=== PATIENT | female | born 1945 | race Caucasian/White ===

== ENCOUNTER 2016-04-15 14:06 | Emergency (ER) | payer OTHER ==
[~2016-04-15] VITALS: Ht 152.4 cm; Wt 56.7 kg
--- NOTE | 2016-04-15 14:08 | NUR ---
PT BIBA TO BED 3 AT THIS TIME
--- NOTE | 2016-04-15 14:15 | NUR ---
BIBA TO ED WITH C/O LOWER BACK PAIN RADIATING RLE X 10 DAYS; STATED, WAS SEEN AT [place] 2 DAYS AGO, RX PAIN MED BUT DOES NOT WORK FOR HER AND SHE CAN NOT RECALL NAME; HX DM, HTN , BACK PAIN; DENIES N/V/D; SKIN IS PINK/WARM/DRY; AAOX4 WITH EVEN AND STEADY GAIT; LUNGS CLEAR BL; HR EVEN AND REGULAR; PT DENIES ANY FEVER, CP, SOB, OR COUGH AT THIS TIME; PATIENT STATES PAIN OF 8/10 AT THIS TIME; VSS; PATIENT POSITIONED FOR COMFORT; HOB ELEVATED; BEDRAILS UP X2; BED DOWN. ER MD MADE AWARE OF PT STATUS.
[2016-04-15 14:17] VITALS: BP 119/54
[2016-04-15] MEDS ORDERED: MORPHINE SULFATE 4 MG/ML SYR IM ONE (15:05)
[2016-04-15] MEDS ORDERED: ONDANSETRON 4 MG ODT PO ONE (15:05)
--- NOTE | 2016-04-15 15:15 | NUR ---
AAO TAKEN TO XRAY VIA AMANDA BY ACCESS LEAD
[2016-04-15] MEDS ORDERED: predniSONE 20 MG TAB PO ONE (15:45)
--- NOTE | 2016-04-15 15:56 | NUR ---
AAO PT EATING SANDWICH, APPLE SAUCE, FEELS BETTER PAIN AT 5/10, HOOKED ON A MONITOR, VSS
[2016-04-15 16:20] VITALS: BP 121/63
--- NOTE | 2016-04-15 16:20 | NUR ---
Patient discharged with v/s stable. Written and verbal after care instructions given and explained. Patient alert, oriented and verbalized understanding of instructions. Wheel Chair Assisted with to car. All questions addressed prior to discharge. ID band removed. Patient advised to follow up with PMD. Rx of NORO, PREDNISONE given. Patient educated on indication of medication including possible reaction and side effects. Opportunity to ask questions provided and answered.
== END 2016-04-15 16:20 | disposition home or self-care (01) ==
LOC: MED 14:06
DX: M51.36 Other intervertebral disc degeneration, lumbar region (principal); I10 Essential (primary) hypertension; E11.9 Type 2 diabetes mellitus without complications; Z88.2 Allergy status to sulfonamides
CPT/HCPCS: 72100; 73502; 82948; 96372; 99284; J2270; J7512; S0119

== ENCOUNTER 2016-10-27 22:05 | Inpatient (IN) | payer BC, OTHER ==
[~2016-10-27] VITALS: Ht 160 cm; Wt 68.5 kg
[~2016-10-27 22:05] MED LIST: DULO30EC PO; IBUP-1842 PO; IMO2 PO; LEVO0.0511 PO; LISI10TA11 PO; MECL-272 PO; METF500T PO; OLAN10TA26 PO; PREG100C PO; SIMV10TA1 PO
[2016-10-27] MEDS ORDERED: NALOXONE 0.4 MG/ML VIAL IVP ONE (22:10)
[2016-10-27] MEDS ORDERED: NALOXONE PFS 2 MG/2 ML SYR IVP ONE (22:10)
[2016-10-27 22:12] VITALS: BP 130/70
--- NOTE | 2016-10-27 22:15 | NUR ---
PT PLACED IN BED 5 BY EMS.
--- NOTE | 2016-10-27 22:16 | NUR ---
71Y F BIBA C/O ALOC, LAST SEEN NORMAL BY FAMILY MIDNIGHT LAST NIGHT. PT WAS ADMITTED TO [facility] FOR UNKNOWN REASONS AT THIS TIME. PT AWAKE, AOX1 NAME. PER EMS, PT WAS UNRESPONSIVE UPON ARRIVAL, HAD PINPOINT PUPILS AND WAS GIVEN NARCAN WITH MINIMAL CHANGE. HX HTN, DM BLOOD GLUCOSE IN FIELD WAS 90
[2016-10-27] MEDS ORDERED: BACL10TA4 PO (22:22)
[2016-10-27] MEDS ORDERED: IBUP-1842 PO (22:22)
[2016-10-27] MEDS ORDERED: ACET-8386 PO (22:22)
--- NOTE | 2016-10-27 22:24 | NUR ---
PT TAKEN TO CT
--- NOTE | 2016-10-27 22:36 | NUR ---
PT RETURN FROM CT
--- NOTE | 2016-10-27 22:44 | NUR ---
Dr. Hollis evaluating patient at bedside.
[2016-10-27] MEDS ORDERED: NACL 0.9% 1,000 ML IV ONE (23:00)
[2016-10-27 23:13] LABS: BASOPHILS # (AUTO) 0.2 K/uL (0.00-0.22); BASOPHILS % (AUTO) 3.1 % (0.0-2.0); EOSINOPHILS # (AUTO) 0.1 K/uL (0-0.4); EOSINOPHILS % (AUTO) 1.4 % (0.0-4.0); HEMATOCRIT 34.3 % (36-48); HEMOGLOBIN 10.8 g/dL (12.0-16.0); LYMPHOCYTES % (AUTO) 27.7 % (20.5-51.1); MEAN CORPUSCULAR HEMOGLOBIN 27 pg (27-31); MEAN CORPUSCULAR HGB CONC 32 g/dL (33-37); MEAN CORPUSCULAR VOLUME 86 fL (80-94); MONOCYTES # (AUTO) 0.5 K/uL (0.8-1.0); MONOCYTES % (AUTO) 7.4 % (1.7-9.3); NEUTROPHILS # (AUTO) 4.5 K/uL (1.8-7.7); NEUTROPHILS % (AUTO) 60.4 % (42.2-75.2); PLATELET COUNT (AUTO) 326 K/uL (140-450); RED BLOOD CELL COUNT(AUTO) 3.99 MIL/uL (4.20-5.40); RED CELL DISTRIBUTION WIDTH 15.1 % (11.6-13.7); WHITE BLOOD COUNT (AUTO) 7.3 K/uL (4.8-10.8)
[2016-10-27 23:24] LABS: ANION GAP 11.8 (8-16); CARBON DIOXIDE 26.9 mmol/L (21-32); CHLORIDE 108 mmol/L (98-107); CREATININE 0.7 mg/dL (0.6-1.3); GLUCOSE 98 mg/dL (74-106); POTASSIUM 3.7 mmol/L (3.5-5.1); SODIUM SERUM 143 mmol/L (136-145); UREA NITROGEN, BLOOD 11 mg/dL (7-18)
[2016-10-27 23:30] LABS: APPEARANCE,URINE CLEAR (CLEAR); BILIRUBIN,URINE NEGATIVE (NEGATIVE); BLOOD, URINE NEGATIVE (NEGATIVE); COLOR,URINE YELLOW (YELLOW); LEUKOCYTE ESTERASE ,URINE NEGATIVE (NEGATIVE); NITRITE, URINE NEGATIVE (NEGATIVE); PH,URINE 6.5 (5.0-9.0); UGLUCOSE NEGATIVE (NEGATIVE)
[2016-10-27 23:30] LABS: ALBUMIN 3.6 g/dL (3.4-5.0); ASPARTATE AMINOTRANSFERASE 39 U/L (15-37); TOTAL BILIRUBIN 0.2 mg/dL (0.0-1.0)
[2016-10-27 23:31] LABS: ACETAMINOPHEN < 0.5 ug/ml (10-30); SALICYLATE < 2.8 mg/dL (2.8-20.0)
[2016-10-27 23:38] LABS: BARBITURATE, URINE NEG. ng/ml (NEG <=200); BENZODIAZEPINE, URINE NEG. ng/mL (NEG <=200); CANNABINOID, URINE NEG. ng/mL (NEG <=50); COCAINE, URINE NEG. ng/mL (NEG <=300); OPIATE, URINE NEG. ng/mL (NEG <=2000); PHENCYCLIDINE SCREEN,URINE NEG. ng/mL (NEG <=25)
[2016-10-28] MEDS: NACL 0.9% 1,000 ML IV SCH ×4 (00:04→22:42)
[2016-10-28] MEDS ORDERED: MORPHINE SULFATE 2 MG/ML SYR IVP PRN (00:05)
[2016-10-28] MEDS ORDERED: ACETAMINOPHEN 325 MG TAB PO PRN (00:05)
[2016-10-28] MEDS ORDERED: ONDANSETRON 4 MG/2 ML VIAL IM/IVP PRN (00:05)
[2016-10-28] MEDS ORDERED: HYDROcodone/APAP 7.5/325 MG 1 TAB PO PRN (00:05)
[2016-10-28] MEDS ORDERED: DOCUSATE SODIUM 100 MG GELCAP PO PRN (00:05)
--- NOTE | 2016-10-28 00:32 | NUR ---
Patient will be admitted to care of DR CHENG. Admited to TELE. Will go to room 124B. Belongings list completed. Report to HARINI SUTTON .
[2016-10-28 00:48] LABS: PROTHROMBIN TIME 10.1 secs (10.8-13.4)
[2016-10-28 00:50] LABS: CHOL/HDL RATIO 2.2 (1-4.5); FREE T4 (FREE THYROXINE) 0.88 ng/dL (0.76-1.46); MAGNESIUM 1.7 mg/dL (1.8-2.4); PHOSPHORUS 3.8 mg/dL (2.5-4.9)
--- NOTE | 2016-10-28 01:00 | NUR ---
DUE TO PT CLINICAL CONDITION OF ALOC, ASSESSMENT REPORT IS LIMITED. UNABLE TO OBTAIN MEDICAL HX FROM PT. INFORMATION TO COMPLETE PT ASSESSMENT WAS OBTAINED FROM ER HISTORY REPORT.
--- NOTE | 2016-10-28 01:05 | NUR ---
PT ARRIVED AT [facility] VIA GURNEY FROM ER. PT IS SLEEPING. BOWEL SOUNDS PRESENT ON ALL FOUR QUADRANT. BILATERAL HALF SIDE RAILS UP, BED ALARM ON. BELONGING ARE AT THE BEDSIDE. WILL CONTINUE TO MONITOR.
--- NOTE | 2016-10-28 01:20 | NUR ---
SCD'S PLACED ON PT BLE. PT TOLERATED WELL.
--- NOTE | 2016-10-28 02:20 | NUR ---
PT IS SLEEPING. NO SIGNS OF ACUTE DISTRESS, BED ON LOW POSITION, CALL LIGHT WITHIN REACH. WILL CONTINUE TO MONITOR.
[2016-10-28 04:00] VITALS: BP 141/66
--- NOTE | 2016-10-28 04:10 | NUR ---
PT IS SLEEPING. SHOWING NO SIGNS OF ACUTE DISTRESS, BED ON LOW POSITION, BILATERAL HALF SIDE RAILS UP, BED ALARM ON, WILL CONTINUE TO MONITOR.
--- NOTE | 2016-10-28 06:10 | NUR ---
PT IS SLEEPING. SHOWING NO SIGNS OF ACUTE DISTRESS, BED ON LOW POSITION, BILATERAL HALF SIDE RAILS UP, BED ALARM ON, WILL CONTINUE TO MONITOR.
[2016-10-28 06:15] LABS: BASOPHILS # (AUTO) 0.3 K/uL (0.00-0.22); BASOPHILS % (AUTO) 3.2 % (0.0-2.0); EOSINOPHILS # (AUTO) 0.1 K/uL (0-0.4); EOSINOPHILS % (AUTO) 1.4 % (0.0-4.0); HEMATOCRIT 29.8 % (36-48); HEMOGLOBIN 9.7 g/dL (12.0-16.0); LYMPHOCYTES # (AUTO) 2.3 K/uL (2.5-16.5); LYMPHOCYTES % (AUTO) 29.1 % (20.5-51.1); MEAN CORPUSCULAR HEMOGLOBIN 28 pg (27-31); MEAN CORPUSCULAR HGB CONC 33 g/dL (33-37); MEAN CORPUSCULAR VOLUME 85 fL (80-94); MONOCYTES # (AUTO) 0.6 K/uL (0.8-1.0); MONOCYTES % (AUTO) 7.7 % (1.7-9.3); NEUTROPHILS # (AUTO) 4.8 K/uL (1.8-7.7); NEUTROPHILS % (AUTO) 58.6 % (42.2-75.2); PLATELET COUNT (AUTO) 307 K/uL (140-450); RED CELL DISTRIBUTION WIDTH 15.6 % (11.6-13.7); WHITE BLOOD COUNT (AUTO) 8.1 K/uL (4.8-10.8)
--- NOTE | 2016-10-28 06:25 | NUR ---
PAGED DR. GOODSON REGARDING PT DIET, WILL WAIT FOR CALL BACK.
[2016-10-28 06:37] LABS: ANION GAP 12.2 (8-16); CARBON DIOXIDE 24.5 mmol/L (21-32); CHLORIDE 110 mmol/L (98-107); CREATININE 0.6 mg/dL (0.6-1.3); GLUCOSE 93 mg/dL (74-106); POTASSIUM 3.7 mmol/L (3.5-5.1); SODIUM SERUM 143 mmol/L (136-145); UREA NITROGEN, BLOOD 10 mg/dL (7-18)
--- NOTE | 2016-10-28 07:30 | NUR ---
ENDORSED PT TO AM NURSE. PT IS STABLE.
--- NOTE | 2016-10-28 07:35 | NUR ---
PT UP IN THE BATHROOM WITH NIGHT NURSE IN THE ROOM WITH HER. PT IS ALERT TO NAME ONLY. SHE IS DISOREINTED TO TIME, PLACE AND PURPOSE. ABLE TO MOVE ALL EXT BUT VERY WEAK. PT DENIES ANY PAIN AT THIS TIME. NO RESP DISTRESS NOTED. IVF INFUSING ORDERED.
[2016-10-28 08:00] VITALS: BP 122/72
[2016-10-28] MEDS: BLOOD GLUCOSE MONITORING 1 DEV DEV FS SCH ×4 (08:06→20:55)
--- NOTE | 2016-10-28 08:16 | NUR ---
PATIENT HAS BEEN SCREENED AND CATEGORIZED HIGH NUTRITION RISK. PATIENT WILL BE SEEN WITHIN 1-2 DAYS OF ADMISSION. 10/28/16-10/29/[address]
[2016-10-28 08:41] VITALS: BP 122/72
[2016-10-28] MEDS: LEVOTHYROXINE 0.05 MG TAB PO SCH (08:45)
[2016-10-28] MEDS: LISINOPRIL 10 MG TAB PO SCH (08:46)
[2016-10-28] MEDS: MECLIZINE 25 MG TAB PO SCH (08:47)
[2016-10-28] MEDS: OLANZapine 5 MG TAB PO SCH (08:49)
[2016-10-28] MEDS: DULoxetine 30 MG CAPDR PO SCH (08:50)
[2016-10-28] MEDS: metFORMIN 500 MG TAB PO SCH ×2 (09:00→20:55)
--- NOTE | 2016-10-28 10:51 | NUR ---
PT IN BED SLEEPING CALMLY, SHE IS ABLE TO AROUSE EASILY. NO ACUTE DISTRESS NOTED. V/S STABLE.
[2016-10-28 12:00] VITALS: BP 100/61
--- NOTE | 2016-10-28 13:02 | NUR ---
10/28/16 RD INITIAL ASSESSMENT COMPLETED PLEASE REFER TO NUTRITION ASSESSMENT UNDER CARE ACTIVITY FOR ESTIMATED NUTRITIONAL NEEDS. 1. CONTINUE CONSISTENT CARB [address] TO FOLLOW UP WITHIN 2-3 DAYS; HIGH RISK [address]UN[address]
[2016-10-28 16:00] VITALS: BP 107/72
--- NOTE | 2016-10-28 16:54 | NUR ---
PT IN BED SITTING COMFORTABLY. TYLENOL 650MG PO WAS GIVEN AT 1522 FOR COMPLAINT OF HEADACHE. PAIN IS AT A LEVEL 2/10. NO DISTRESS AT THIS TIME. PT IS ALERT AND ORIENTED X4. PT REMAINS IN NSR ON THE MONITOR. V/S STABLE.
--- NOTE | 2016-10-28 17:20 | NUR ---
DISCLOSURE OF HEALTH INFORMATION CONSENT SIGNED BY PT, VERBALIZED UNDERSTANDING. CONSENT FAXED TO [facility]. Addendum: 10/28/16 at 1723 by Rosa Wagner RN CONSENT FAXED TO [facility], MEDICAL RECORDS DEPT.
--- NOTE | 2016-10-28 19:30 | NUR ---
RECEIVED PT ON BED, AAOX3, FORGETFUL SOMETIMES, VITAL SIGNS STABLE, DENIES ANY PAIN, IVF INFUSING WELL, SAFETY MEASURES IN PLACE, SIDE RAILS UP AND BED ALARM ON, ENCOURAGE TO USE CALL LIGHT FOR ASSISTANCE, CALL LIGHT WITHIN REACH.
[2016-10-28 20:00] VITALS: BP 118/71
[2016-10-28] MEDS: SIMVASTATIN 10 MG TAB PO SCH (20:53)
--- NOTE | 2016-10-28 21:00 | NUR ---
PT TRIGGERED BED ALARM, SEEN STANDING UP TO USE BEDSIDE COMMODE, UNHOOKED ON SCD'S, REINFORCE TO USE CALL LIGHT FOR ASSISTANCE, VERBALIZED UNDERSTANDING, WENT BACK TO BED, ALL NEEDS ATTENDED.
[2016-10-29] VITALS: BP 132/59
--- NOTE | 2016-10-29 | NUR ---
PT SLEEPING, EASILY AROUSABLE, VITAL SIGNS STABLE, SB ON TELE, ASYMPTOMATIC, NO SIGNS OF PAIN OR SOB, IVF INFUSING WELL, SIDE RAILS UP AND BED ALARM ON, CONTINUE TO MONITOR CLOSELY.
[2016-10-29] MEDS: NACL 0.9% 1,000 ML IV SCH ×2 (03:36→10:33)
[2016-10-29 04:00] VITALS: BP 132/60
--- NOTE | 2016-10-29 04:00 | NUR ---
PT SLEEPING, EASILY AROUSABLE VITAL SIGNS STABLE, DENIES ANY PAIN, MONITORED CLOSELY.
--- NOTE | 2016-10-29 05:50 | NUR ---
BLOOD SUGAR CHECKED WITH 92 RESULT, PT AAOX4, CONVERSANT, MONITORED CLOSELY.
--- NOTE | 2016-10-29 06:29 | NUR ---
PT CALLED LOOKING FOR HER PURSE, PER AM NURSE NO PURSE WAS SEEN IN THE ROOM YESTERDAY, PT CALLED ROOM MATE WANDY AND SAID HER PURSE WAS IN HER ROOM, WANDY TOOK HOME HER CLOTHES AND SLIPPERS LAST NIGHT, NO PERSONAL BELONGINGS LEFT EXCEPT FOR HER CELLPHONE AND ID CARDS, WILL ENDORSE TO AM SHIFT.
[2016-10-29] MEDS: BLOOD GLUCOSE MONITORING 1 DEV DEV FS SCH ×4 (06:36→21:07)
--- NOTE | 2016-10-29 07:15 | NUR ---
PT AWAKE, NO DISTRESS NOTED, REPORT GIVEN TO LESLEY MARQUIS FOR CONTINUITY OF CARE.
--- NOTE | 2016-10-29 07:17 | NUR ---
RECEIVED REPORT FROM METAL RECLAMATION KETTLE TENDER NURSE AT BEDSIDE FOR CONTINUITY OF CARE. PT IS AWAKE AND ORIENTED TO PERSON, PLACE, TIME, AND PURPOSE. NO COMPLAINTS AT THIS TIME. WILL CONTINUE TO MONITOR.
[2016-10-29 08:00] VITALS: BP 136/81
[2016-10-29 08:30] LABS: T4 (THYROXINE) 7.2 ug/dL (4.5-12.0)
[2016-10-29] MEDS: DULoxetine 30 MG CAPDR PO SCH (08:31)
[2016-10-29] MEDS: LISINOPRIL 10 MG TAB PO SCH (08:31)
[2016-10-29] MEDS: LEVOTHYROXINE 0.05 MG TAB PO SCH (08:31)
[2016-10-29] MEDS: OLANZapine 5 MG TAB PO SCH (08:32)
[2016-10-29] MEDS: MECLIZINE 25 MG TAB PO SCH (08:32)
[2016-10-29] MEDS: metFORMIN 500 MG TAB PO SCH ×2 (08:32→21:11)
--- NOTE | 2016-10-29 08:32 | NUR ---
ADMINISTERED SCHEDULED MEDS. HELD GLUCOPHAGE DUE TO BS OF 92. PT AWARE AND TOLERATED MEDS WELL. PT IS SITTING UP IN BED EATING BREAKFAST. CALLED FOR ASSISTANCE TO BSC. PT CAN STAND WITH ASSIST. STEADY GAIT. PT IS AAO TO PERSON- KNOWS HER NAME WHEN ASKED, TIME- CAN TELL ME THE MONTH AND DAY, PLACE- KNOWS SHE IS AT [facility], PURPOSE- SHE STATED THAT SHE HAD "ALTERED STATE AND DIDN'T KNOW WHAT HAPPENED" AND WAS REASON WHY SHE IS IN HOSPITAL. IV IS ON LEFT HAND 20G NS @110ML/HR. SKIN IS INTACT. PT HAS NO COMPLAINTS AT THIS TIME. WILL CONTINUE TO MONITOR.
[2016-10-29] MEDS ORDERED: FERROUS SULFATE 325 MG TABEC PO SCH (10:30)
--- NOTE | 2016-10-29 10:30 | NUR ---
CHANGED EMPTY NS BAG OF 1,000ML. IV IS INFUSING AT 110ML/HR ON LEFT HAND 20G. FLUSHED IV SITE. ADMINISTERED ORDERED MED OF FERROUS SULFATE. PT TOLERATED WELL. PT GOT UP TO USE BSC. VOIDED 500ML. PT IS SITTING IN BED AND WATCHING TV. WILL CONTINUE TO MONITOR.
--- NOTE | 2016-10-29 13:50 | NUR ---
CHECKED ON PT IN ROOM. SITTING IN BED. PT GOT UP TO USE BSC. VOIDED 500ML. ASSISTED PT BACK TO BED. PT IS BEING SEEN BY DR. WILKINSON AT THIS TIME. WILL CONTINUE TO MONITOR.
--- NOTE | 2016-10-29 14:23 | NUR ---
CM NOTE INITIAL REVIEW FAXED TO [facility] / FAX# [phone], ATTN: [facility] #[phone]
--- NOTE | 2016-10-29 14:41 | NUR ---
P.T. NOTES P.T. EVAL DONE, D/C FROM P.T. AFTER EVAL, NURSING TO AMBU PATIENT AD JOHNNIE.
--- NOTE | 2016-10-29 15:28 | NUR ---
CM NOTE PER ENZO MORTENSEN FOR [facility], PATIENT CAN BE SENT HOME W/ HOME HEALTH. AWAITING CALL BACK FOR CONTRACTED HOME HEALTH FACILITIES. DR. RIVERA MADE AWARE; OK FOR DISCHARGE HOME TOMORROW.
--- NOTE | 2016-10-29 17:00 | NUR ---
RECEIVED CALL FROM HOME HEALTH FACILITY TRUE . CALLED FROM . STATED START OF HOME HEALTH CARE FOR P/T WILL START THURSDAY.
--- NOTE | 2016-10-29 17:21 | NUR ---
OBTAINED CONSENT FOR AUTHORIZATION OF HEALTH INFORMATION DISCLOSURE FROM PT. FAXED CONSENT TO [facility]. OBTAINED TRANSACTION REPORT THAT FAX WAS RECEIVED.
--- NOTE | 2016-10-29 18:30 | NUR ---
CHECKED ON PT IN ROOM. PT IS WASHING FACE AND DOING ORAL CARE OVER SINK. ASSISTED PT TO BSC AND BACK TO BED. PT HAS NO COMPLAINTS AT THIS TIME. WILL CONTINUE TO MONITOR.
--- NOTE | 2016-10-29 19:28 | NUR ---
ENDORSED PT TO [employer] FACTORY WORKER NURSE AT BEDSIDE FOR CONTINUITY OF CARE. PT IS IN STABLE CONDITION.
--- NOTE | 2016-10-29 20:10 | NUR ---
PT'S BED ALARMED. PT WANTS TO GO BATHROOM. PT APPEARS IRRITATED AND WANTS THE ALARM OFF. INFORMED HER IT NEEDS TO BE ON ALL THE TIME FOR HER SAFETY. OFFERED BEDSIDE COMMODE BUT REFUSED AND WENT RIGHT AWAY, ALMOST HER IV PULLED OUT. ASSISTED PT TO THE BATHROOM. ORDNANCE ENGINEERING TECHNICIAN CAME TO ASSIST.
[2016-10-29 20:45] VITALS: BP 110/56
--- NOTE | 2016-10-29 20:45 | NUR ---
SEEN PT AWAKE, ALERT APPEARS COMFORTABLE IN BED DRINKING MILK. INITIAL ASSESSMENT DONE. VITAL SIGNS CHECKED. PT DENIES ANY PAIN OR DISCOMFORT. BLOOD SUGAR CHECKED: 111. NO COVERAGE NEEDED. PT ASKED FOR HOT TEA. WILL GIVE ONE. SAFETY REINFORCED. PT INSTRUCTED TO CALL WHEN IN NEED. PT SAID "OK". SEQUENTIAL APPLIED PER REQUEST.
[2016-10-29] MEDS: SIMVASTATIN 10 MG TAB PO SCH (21:10)
[2016-10-30] MEDS: NACL 0.9% 1,000 ML IV SCH ×2 (02:35→06:54)
--- NOTE | 2016-10-30 04:00 | NUR ---
PT AWAKE DOING HER AM CARE IN THE SINK. PT HAD BOWEL MOVEMENT.
[2016-10-30 04:20] VITALS: BP 121/76
[2016-10-30] MEDS ORDERED: BLOOD GLUCOSE MONITORING 1 DEV DEV FS SCH (05:10)
--- NOTE | 2016-10-30 05:35 | NUR ---
PT'S IV SITE SWOLLEN. IVF STOPPED AND TUBING DISCONNECTED. INFORMED PT WILL INSERT NEW IV BUT PT REFUSED. ENCOURAGED PT TO ELEVATED LEFT ARM AND WILL APPLY ICE. PT VERBALIZED UNDERSTANDING.
--- NOTE | 2016-10-30 05:36 | NUR ---
WILL NOTIFY MD ABOUT PT REFUSING NEW IV ACCESS.
--- NOTE | 2016-10-30 06:46 | NUR ---
SPOKE TO DR BROOKS REGARDING PT'S IV, THAT PT REFUSED NEW IV INSERTION BECAUSE PT SAID SHE'S GOING HOME AND THERE'S ALREADY ORDER TO D/C HOME WELL. SHE SAID THAT'S OK.
--- NOTE | 2016-10-30 07:30 | NUR ---
RECEIVED REPORT,ASSUMED CARE. PT AWAKE, RESTING IN BED. RESPIRATION EVEN AND UNLABORED,NO SOB, NO S/S OF DISTRESS. DENIES PAIN AT THIS TIME. DISCUSSED PLAN OF CARE. PT STATES SHE'S GOING HOME TODAY. CALL LIGHT PLACED WITHIN EASY REACH. WILL CONTINUE TO MONITOR.
[2016-10-30 08:00] VITALS: BP 135/73
[2016-10-30] MEDS ORDERED: FERROUS SULFATE 325 MG TABEC PO SCH (08:00)
[2016-10-30] MEDS: LISINOPRIL 10 MG TAB PO SCH (08:55)
[2016-10-30] MEDS: metFORMIN 500 MG TAB PO SCH (08:55)
[2016-10-30] MEDS: DULoxetine 30 MG CAPDR PO SCH (08:55)
[2016-10-30] MEDS: OLANZapine 5 MG TAB PO SCH (08:55)
[2016-10-30] MEDS: MECLIZINE 25 MG TAB PO SCH (08:56)
[2016-10-30] MEDS: LEVOTHYROXINE 0.05 MG TAB PO SCH (08:58)
--- NOTE | 2016-10-30 09:00 | NUR ---
ALL DUE MEDS ADMINISTERED, TOLERATED WELL. NO ACUTE CHANGES NOTED AT THIS TIME. FOR POSSIBLE DC TODAY.
--- NOTE | 2016-10-30 09:04 | NUR ---
Social Service Note: Per skilled nursing case manager Alexander stoddard [facility] , [facility] (Home Health) will send a nurse to patient's home tomorrow 10/31/16.
[2016-10-30] MEDS ORDERED: OLAN10TA26 PO (09:58)
[2016-10-30] MEDS ORDERED: LEVO0.0511 PO (09:58)
[2016-10-30] MEDS ORDERED: LISI10TA11 PO (09:58)
[2016-10-30] MEDS ORDERED: SIMV10TA1 PO (09:58)
[2016-10-30] MEDS ORDERED: METF500T PO (09:58)
--- NOTE | 2016-10-30 10:30 | NUR ---
PT CLEARED FOR DISCHARGE BY DR Jostin RIVERA WITH HOME HEALTH. PT WAS SEEN BY MD AND DISCUSSED PLAN OF CARE UPON DISCHARGE. PT STATES, HER FRIEND [employer] WILL PICK HER UP BETWEEN [phone].
--- NOTE | 2016-10-30 12:10 | NUR ---
PT DISCHARGED TODAY TO HOME WITH HOME HEALTH ORDERED. WAS PICKED UP BY WANDY (FRIEND) VIA PRIVATE VEHICLE. DISCHARGE INSTRUCTIONS AND EDUCATION PROVIDED REGARDING COMPLIANCE WITH MEDS AND FOLLOW UP APPT WITH DR. SANDRA AND PSYCH OUTPATIENT REFERRAL. PRESCRIPTIONS GIVEN WITH INSTRUCTIONS. BOTH PT AND FRIEND VERBALIZED UNDERSTANDING. ALL BELONGINGS GIVEN, SIGNED BY THE PT. ID BAND REMOVED. NO IV ACCESS. PT DENIES PAIN OR DISCOMFORT, NO S/S OF RESPIRATORY DISTRESS. PT ACCOMPANIED BY STAFF TO THE LOBBY, IN STABLE CONDITION. VS 98.5 72 21 135/78 96% 0/10
== END 2016-10-30 12:10 | disposition home health service (06) | DRG 640 ==
LOC: MED 22:05 → MTU 10-28 00:03
PROVIDERS: ADMIT Student in an Organized Health Care Education/Training Program; ATTEND Student in an Organized Health Care Education/Training Program
DX: E86.0 Dehydration (principal); G93.41 Metabolic encephalopathy; F03.90 Unspecified dementia, unspecified severity, without behavioral disturbance, psychotic disturbance, mood disturbance, and anxiety; E87.8 Other disorders of electrolyte and fluid balance, not elsewhere classified; E11.9 Type 2 diabetes mellitus without complications; I10 Essential (primary) hypertension; D50.9 Iron deficiency anemia, unspecified; E83.42 Hypomagnesemia; E83.52 Hypercalcemia; M19.032 Primary osteoarthritis, left wrist; M19.031 Primary osteoarthritis, right wrist; F44.81 Dissociative identity disorder; R26.9 Unspecified abnormalities of gait and mobility; R74.0 Nonspecific elevation of levels of transaminase and lactic acid dehydrogenase [LDH]; F41.9 Anxiety disorder, unspecified; G40.909 Epilepsy, unspecified, not intractable, without status epilepticus; Z88.2 Allergy status to sulfonamides; Z91.81 History of falling; Z79.899 Other long term (current) drug therapy
CPT/HCPCS: 36415; 70450; 71010; 80048; 80053; 80305; 81003; 82140; 82150; 82948; 83036; 83690; 83735; 83880; 84100; 84436; 84439; 84443; 84479; 84484; 85025; 85610; 85730; 87081; 93005; 93880; 96361; 96374; 99285; C1758; G0480; G0482; J2310; J7030; J8597; Q0092

== ENCOUNTER 2018-07-02 10:48 | Emergency (ER) | payer OTHER ==
[~2018-07-02] VITALS: Ht 152.4 cm; Wt 44.9 kg
[~2018-07-02 10:48] MED LIST changes: +ACET-8386 PO; +BACL10TA4 PO
[2018-07-02 10:56] VITALS: BP 105/66
--- NOTE | 2018-07-02 11:10 | NUR ---
Patient ambulated to bed 8 with family. RN evaluating patient at bedside.
--- NOTE | 2018-07-02 11:22 | NUR ---
PATIENT BIB ROOMMATE C/O ALOC AND DECREASED APPETITE X 7 DAYS. PT ALERT AND ORIENTED TO PERSON AND PLACE ONLY; PT UNABLE TO STATE TIME AND EVENT. SPEECH DELAYED. NO SMILE DEFICIT NOTED. NO FACIAL DROOP NOTED. ABLE TO IDENTIFIED NIH STROKE SCALE PICTURES. BILATERAL HAND CERAMIC SPRAYER EQUAL. BILATERAL FOOT PUSH EQUAL. EVEN AND STEADY GAIT. RT EYELID NOTED RED AND SWOLLEN; PERRLA. VSS. POSITIONED FOR COMFORT. BEDRAILS UP X1; BED DOWM. PENDING ER MD EVALUATION.
[2018-07-02 13:00] LABS: BASOPHILS % (AUTO) 0.6 % (0.0-2.0); EOSINOPHILS % (AUTO) 0.3 % (0.0-4.0); HEMOGLOBIN 12.1 g/dL (12.0-16.0); LYMPHOCYTES # (AUTO) 1.2 K/uL (2.5-16.5); LYMPHOCYTES % (AUTO) 25.8 % (20.5-51.1); MEAN CORPUSCULAR HEMOGLOBIN 30 pg (27-31); MEAN CORPUSCULAR HGB CONC 34 g/dL (33-37); MEAN CORPUSCULAR VOLUME 88.4 fL (80-94); MONOCYTES # (AUTO) 0.3 K/uL (0.8-1.0); MONOCYTES % (AUTO) 6.7 % (1.7-9.3); NEUTROPHILS % (AUTO) 66.6 % (42.2-75.2); PLATELET COUNT (AUTO) 242 K/uL (140-450); RED BLOOD CELL COUNT(AUTO) 4.07 MIL/uL (4.20-5.40); RED CELL DISTRIBUTION WIDTH 13.9 % (11.6-13.7); WHITE BLOOD COUNT (AUTO) 4.5 K/uL (4.8-10.8)
[2018-07-02 13:06] LABS: ANION GAP 10.6 (8-16); CARBON DIOXIDE 29.2 mmol/L (21-32); CHLORIDE 104 mmol/L (98-107); GLUCOSE 114 mg/dL (74-106); POTASSIUM 3.8 mmol/L (3.5-5.1); SODIUM SERUM 140 mmol/L (136-145); UREA NITROGEN, BLOOD 16 mg/dL (7-18)
[2018-07-02 13:11] LABS: ALBUMIN 4.2 g/dL (3.4-5.0); ASPARTATE AMINOTRANSFERASE 32 U/L (15-37); TOTAL BILIRUBIN 0.4 mg/dL (0.0-1.0)
--- NOTE | 2018-07-02 13:23 | NUR ---
# 14 FR Urinary catheter inserted utilizing sterile technique. Immediate return of 100 ml YELLOW urine noted. Urine sample collected and sent to lab. Pt tolerated procedure WELL.
[2018-07-02] MEDS ORDERED: NACL 0.9% 1,000 ML IV ONE (13:25)
--- NOTE | 2018-07-02 13:36 | NUR ---
XRAY AT BEDSIDE.
--- NOTE | 2018-07-02 14:12 | NUR ---
Patient returned from XRAY. RN re-evaluating patient at bedside.
--- NOTE | 2018-07-02 14:40 | NUR ---
PT DENIES ANY PAIN AT THIS TIME. VSS. NO NEW ORDERS AT THIS TIME.
--- NOTE | 2018-07-02 16:00 | NUR ---
Patient resting comfortably in bed. Vital Signs within normal limits. Respirations even and unlabored.
--- NOTE | 2018-07-02 16:25 | NUR ---
IV removed, catheter intact and site benign. Applied folded 4x4 gauze and tape to stop bleeding.
--- NOTE | 2018-07-02 16:27 | NUR ---
Patient discharged with v/s stable. Written and verbal after care instructions given and explained. Patient verbalized understanding. Ambulatory with by caregiver. All questions addressed prior to discharge. Advised to follow up with PMD.
[2018-07-02 16:28] VITALS: BP 120/97
[2018-07-02 16:51] LABS: APPEARANCE,URINE SL CLOUDY (CLEAR); BILIRUBIN,URINE 1+ (NEGATIVE); BLOOD, URINE NEGATIVE (NEGATIVE); COLOR,URINE ORANGE (YELLOW); LEUKOCYTE ESTERASE ,URINE NEGATIVE (NEGATIVE); NITRITE, URINE NEGATIVE (NEGATIVE); UGLUCOSE NEGATIVE (NEGATIVE)
[2018-07-02 16:55] LABS: RBC,URINE 0-5 /HPF (0-5); WBC,URINE 0-5 /HPF (0-5)
[2018-07-02 16:56] LABS: URINE AMORPHOUS URATE 1+ /HPF (None Seen)
== END 2018-07-02 16:25 | disposition home or self-care (01) ==
LOC: MED 10:48
DX: F03.90 Unspecified dementia, unspecified severity, without behavioral disturbance, psychotic disturbance, mood disturbance, and anxiety (principal); E11.9 Type 2 diabetes mellitus without complications; I10 Essential (primary) hypertension; Z88.2 Allergy status to sulfonamides; Z79.84 Long term (current) use of oral hypoglycemic drugs; Z79.899 Other long term (current) drug therapy
CPT/HCPCS: 36415; 70450; 71045; 80053; 81001; 82948; 83605; 85025; 99284; J7030; Q0092